=== PATIENT | male | born 1970 | race Caucasian/White ===

== ENCOUNTER 2020-10-05 01:30 | Emergency (ER) | payer OTHER ==
[~2020-10-05] VITALS: Ht 172.7 cm; Wt 72.6 kg
--- NOTE | 2020-10-05 01:42 | NUR ---
Pt BIB [facility] with c/o chest pressure that started 1 [address]. Pt states he was sitting at home watching TV when it started. A/O x4, no SOB or labored breathing. Denies any GI/ distress. Clear speech, complete sentences.
[2020-10-05] MEDS ORDERED: MORPHINE SULFATE 4 MG/1 ML DISP.SYRIN IV ONE (01:45)
--- NOTE | 2020-10-05 01:45 | NUR ---
Dr. Camacho at bedside, MSE in progress.
[2020-10-05] MEDS ORDERED: MORPHINE SULFATE 4 MG/1 ML DISP.SYRIN ONE (01:53)
[2020-10-05 02:02] LABS: HEMATOCRIT 38.9 % (36.7-47.1); MEAN CORPUSCULAR HEMOGLOBIN 29.4 uug (23.8-33.4); MEAN CORPUSCULAR VOLUME 87.6 fL (73.0-96.2); PLATELET COUNT (AUTO) 219 K/uL (152-348)
[2020-10-05 02:05] LABS: CREATININE 1.1 mg/dL (0.6-1.3); POTASSIUM 3.2 mmol/L (3.5-5.1)
[2020-10-05 02:17] LABS: BILIRUBIN,DIRECT 0.1 mg/dL (0.0-0.2); BILIRUBIN,TOTAL 0.3 mg/dL (0.2-1.0)
[2020-10-05 02:35] LABS: *AMPHETAMINE, URINE NEGATIVE (NEGATIVE); *CANNABINOID, URINE POSITIVE (NEGATIVE); *COCCAINE, URINE POSITIVE (NEGATIVE); *OPIATE, URINE NEGATIVE (NEGATIVE); *PHENCYCLIDINE SCREEN,URINE NEGATIVE (NEGATIVE)
--- NOTE | 2020-10-05 03:58 | NUR ---
Called [facility], Dalia York paged.
[2020-10-05] MEDS ORDERED: diphenhydrAMINE 50 MG CAPSULE PO ONE (04:15)
[2020-10-05] MEDS ORDERED: diphenhydrAMINE 50 MG CAPSULE ONE (04:25)
--- NOTE | 2020-10-05 04:58 | NUR ---
Patient is resting comfortably in bed with eyes closed. Vitals stable.
[2020-10-05] MEDS ORDERED: MORPHINE SULFATE 2 MG/1 ML DISP.SYRIN IV PRN (05:30)
[2020-10-05] MEDS ORDERED: Z GUARD REMEDY PASTE 57 GM TUBE TOP PRN (05:30)
[2020-10-05] MEDS ORDERED: ACETAMINOPHEN 325 MG TABLET PO PRN (05:30)
[2020-10-05] MEDS ORDERED: ONDANSETRON 4 MG/2 ML VIAL IV PRN (05:30)
[2020-10-05] MEDS ORDERED: MAGNESIUM HYDROXIDE 30 ML LIQUID UDC PO PRN (05:30)
--- NOTE | 2020-10-05 07:00 | NUR ---
recieved pt in bed, monitor on, pt awake, pt denies chest pain/pressure at this time.
--- NOTE | 2020-10-05 08:00 | NUR ---
pt had break fast with good apetite.
[2020-10-05] MEDS ORDERED: ASPIRIN 81 MG TAB.CHEW PO SCH (09:00)
[2020-10-05] MEDS ORDERED: ENOXAPARIN SODIUM 40 MG/0.4 ML DISP.SYRIN SQ SCH (09:00)
[2020-10-05] MEDS ORDERED: ENOXAPARIN SODIUM 40 MG/0.4 ML DISP.SYRIN SQ ONE (09:17)
[2020-10-05] MEDS ORDERED: ASPIRIN 81 MG TAB.CHEW ONE (09:17)
[2020-10-05] MEDS ORDERED: ESTA2TAB PO (11:23)
[2020-10-05] MEDS ORDERED: SERT100T PO (11:23)
[2020-10-05] MEDS ORDERED: CLOP75TA15 PO (11:23)
[2020-10-05] MEDS ORDERED: ALPR1TAB7 PO (11:23)
[2020-10-05] MEDS ORDERED: ATOR80TA PO (11:23)
--- NOTE | 2020-10-05 11:26 | NUR ---
pt ambualtes in the room with steady gait.
[2020-10-05] MEDS ORDERED: ASPI81TA31 PO (11:49)
[2020-10-05] MEDS ORDERED: ZOLP10TA2 PO (11:49)
--- NOTE | 2020-10-05 12:41 | NUR ---
lunch tray provided.
--- NOTE | 2020-10-05 14:39 | NUR ---
Dr. King at bedside.
[2020-10-05] MEDS ORDERED: ALPRAZOLAM 0.25 MG TABLET PO ONE (15:00)
[2020-10-05] MEDS ORDERED: POTASSIUM CHLORIDE 20 MEQ TAB.PRT.SR PO ONE (15:15)
[2020-10-05] MEDS ORDERED: POTASSIUM CHLORIDE 20 MEQ TAB.PRT.SR ONE ×2 (15:16→15:23)
[2020-10-05] MEDS ORDERED: ALPRAZOLAM 0.5 MG TABLET ONE (15:16)
--- NOTE | 2020-10-05 15:22 | NUR ---
Patient discharged to home ,per Dr. thomas order, in stable condition. Written and verbal after care instructions given. Patient verbalizes understanding of instructions. Stressed follow up with PMD. a copy of all the images provided for pt to follow up. pt says feels better, deneis any cp, sob or any other distress at this time. pt calling the family to come and poultry picker the pt.
[2020-10-05 15:27] LABS: THYROID STIMULATING HORMONE 3.191 mIU/mL (0.358-3.740)
[2020-10-05 15:29] LABS: MAGNESIUM 2.5 mg/dL (1.8-2.4)
[2020-10-05] MEDS ORDERED: ATORVASTATIN 20 MG TABLET PO SCH (21:00)
== END 2020-10-05 15:44 | disposition home or self-care (01) ==
LOC: ER 01:49
DX: R07.9 Chest pain, unspecified (principal); I25.10 Atherosclerotic heart disease of native coronary artery without angina pectoris; Z95.5 Presence of coronary angioplasty implant and graft; I10 Essential (primary) hypertension; E87.6 Hypokalemia; F17.210 Nicotine dependence, cigarettes, uncomplicated; E78.5 Hyperlipidemia, unspecified; F41.9 Anxiety disorder, unspecified; J98.11 Atelectasis; Z20.822 Contact with and (suspected) exposure to COVID-19
CPT/HCPCS: 36415; 71045; 80048; 80076; 80307; 83735; 83880; 84443; 84484 ×3; 85025; 87426; 93005; 96372; 99285; J1650; Q0163; 70030-TC; A4663; J2270

== ENCOUNTER 2022-11-07 11:27 | Emergency (ER) | payer MEDICAID, OTHER ==
[~2022-11-07] VITALS: Ht 167.6 cm; Wt 68.0 kg
[~2022-11-07 11:27] MED LIST: ALPR1TAB7 PO; ASPI81TA31 PO; ATOR80TA PO; CLOP75TA15 PO; ESTA2TAB PO; SERT100T PO; ZOLP10TA2 PO
[2022-11-07 13:04] LABS: BASOPHILS # (AUTO) 0.2 K/UL (0.0-0.2); BASOPHILS % (AUTO) 1.3 % (0.0-2.0); DIFFERENTIAL COMMENT 0; EOSINOPHILS # (AUTO) 0.2 K/uL (0.0-0.7); EOSINOPHILS % (AUTO) 1.4 % (0.0-7.0); HEMATOCRIT 43.5 % (36.7-47.1); HEMOGLOBIN 14.3 g/dL (12.5-16.3); LYMPHOCYTES # (AUTO) 2.3 K/uL (0.8-4.8); LYMPHOCYTES % (AUTO) 17.8 % (20.5-51.5); MEAN CORPUSCULAR HEMOGLOBIN 28.1 uug (23.8-33.4); MEAN CORPUSCULAR HGB CONC 33 g/dL (32.5-36.3); MEAN CORPUSCULAR VOLUME 85.7 fL (73.0-96.2); MONOCYTES # (AUTO) 0.6 K/uL (0.1-1.30); MONOCYTES % (AUTO) 4.8 % (0.0-11.0); NEUTROPHILS # (AUTO) 9.5 K/uL (1.8-8.9); NEUTROPHILS % (AUTO) 74.7 % (38.5-71.5); PLATELET COUNT (AUTO) 225 K/uL (152-348); RED BLOOD CELL COUNT(AUTO) 5.08 MIL/uL (4.06-5.63); WHITE BLOOD COUNT (AUTO) 12.8 K/uL (3.6-10.2)
[2022-11-07 13:11] LABS: CALCIUM 9.4 mg/dL (8.5-10.1); CARBON DIOXIDE 28 mmol/L (21-32); CHLORIDE 102 mmol/L (98-107); CREATININE 1.2 mg/dL (0.6-1.3); GLUCOSE 106 mg/dL (74-106); POTASSIUM 4.2 mmol/L (3.5-5.1); SODIUM SERUM 140 mmol/L (136-145); UREA NITROGEN, BLOOD 15 mg/dL (7-18)
[2022-11-07 13:25] LABS: ALANINE AMINOTRANSFERASE 21 U/L (16-63); ALBUMIN 3.8 g/dL (3.4-5.0); ALKALINE PHOSPHATASE 123 U/L (50-136); ASPARTATE AMINOTRANSFERASE 9 U/L (15-37); BILIRUBIN,DIRECT 0.1 mg/dL (0.0-0.2); BILIRUBIN,TOTAL 0.4 mg/dL (0.2-1.0); NT-PRO BNP 15 pg/mL (0-125); TOTAL PROTEIN, SERUM 7.9 g/dL (6.4-8.2)
[2022-11-07] MEDS ORDERED: SUCR1ORA4 PO (15:24)
[2022-11-07] MEDS ORDERED: FAMO40TA7 PO (15:24)
[2022-11-07 15:35] VITALS: BP 120/77; TEMP 98.4; O2SAT 96
== END 2022-11-07 15:35 | disposition home or self-care (01) ==
LOC: ER 11:27
DX: R11.0 Nausea (principal); I25.10 Atherosclerotic heart disease of native coronary artery without angina pectoris; I10 Essential (primary) hypertension; Z79.01 Long term (current) use of anticoagulants; Z79.82 Long term (current) use of aspirin; Z79.899 Other long term (current) drug therapy
CPT/HCPCS: 36415; 71045; 83690; 84484; 85025; 85730; 93005; A4663

== ENCOUNTER 2024-06-04 15:20 | Emergency (ER) | payer MEDICAID, OTHER ==
[~2024-06-04] VITALS: Ht 170.2 cm; Wt 81.6 kg
[~2024-06-04 15:20] MED LIST changes: +FAMO40TA7 PO; +SUCR1ORA4 PO; -ZOLP10TA2 PO
[2024-06-04 16:48] LABS: ALANINE AMINOTRANSFERASE 23 U/L (16-63); ALBUMIN 4.1 g/dL (3.4-5.0); ALKALINE PHOSPHATASE 127 U/L (50-136); ASPARTATE AMINOTRANSFERASE 19 U/L (15-37); BILIRUBIN,DIRECT 0.1 mg/dL (0.0-0.2); BILIRUBIN,TOTAL 0.5 mg/dL (0.2-1.0); CARBON DIOXIDE 27 mmol/L (21-32); CHLORIDE 100 mmol/L (98-107); GLUCOSE 113 mg/dL (74-106); SODIUM SERUM 140 mmol/L (136-145); TOTAL PROTEIN, SERUM 7.7 g/dL (6.4-8.2); UREA NITROGEN, BLOOD 25 mg/dL (7-18)
[2024-06-04 16:49] LABS: ACETAMINOPHEN < 2.0 ug/mL (10-30); ETHANOL < 3 MG/DL (0-10)
[2024-06-04 16:50] LABS: BASOPHILS # (AUTO) 0.1 K/UL (0.0-0.2); BASOPHILS % (AUTO) 0.6 % (0.0-2.0); DIFFERENTIAL COMMENT 0; EOSINOPHILS # (AUTO) 0.1 K/uL (0.0-0.7); LYMPHOCYTES # (AUTO) 2.7 K/uL (0.8-4.8)
[2024-06-04 16:52] LABS: EOSINOPHILS % (AUTO) 0.9 % (0.0-7.0); HEMATOCRIT 44.2 % (36.7-47.1); LYMPHOCYTES % (AUTO) 19.1 % (20.5-51.5); MEAN CORPUSCULAR HEMOGLOBIN 28.8 uug (23.8-33.4); MEAN CORPUSCULAR HGB CONC 34 g/dL (32.5-36.3); MONOCYTES # (AUTO) 1.1 K/uL (0.1-1.30); MONOCYTES % (AUTO) 7.5 % (0.0-11.0); NEUTROPHILS # (AUTO) 10.3 K/uL (1.8-8.9); NEUTROPHILS % (AUTO) 71.9 % (38.5-71.5); PLATELET COUNT (AUTO) 335 K/uL (152-348); RED CELL DISTRIBUTION WIDTH 15.4 % (12.1-16.2); WHITE BLOOD COUNT (AUTO) 14.3 K/uL (3.6-10.2)
[2024-06-04 16:56] LABS: THYROID STIMULATING HORMONE 2.725 mIU/mL (0.358-3.740)
[2024-06-04 17:12] LABS: *BILIRUBIN,URIN NEGATIVE (NEGATIVE); *BLOOD, URINE 1+ (NEGATIVE); *CLARITY,URINE CLEAR (CLEAR); *COLOR,URINE YELLOW (YELLOW); *KETONES,URINE NEGATIVE (NEGATIVE); *PROTEIN,URINE 1+ (NEGATIVE); *UROBILINOGEN,URINE 0.2 E.U./dl (NORMAL); LEUKOCYTE ESTERASE ,URINE NEGATIVE (NEGATIVE); NITRITE, URINE NEGATIVE (NEGATIVE); UGLUCOSE NEGATIVE (NEGATIVE)
[2024-06-04 17:13] LABS: MAGNESIUM 2.3 mg/dL (1.8-2.4)
[2024-06-04 17:23] LABS: *AMPHETAMINE, URINE NEGATIVE (NEGATIVE); *BARBITURATE, URINE NEGATIVE (NEGATIVE); *BENZODIAZEPINE, URINE POSITIVE (NEGATIVE); *CANNABINOID, URINE POSITIVE (NEGATIVE); *COCCAINE, URINE NEGATIVE (NEGATIVE); *OPIATE, URINE NEGATIVE (NEGATIVE); *PHENCYCLIDINE SCREEN,URINE NEGATIVE (NEGATIVE); FENTANYL, URINE NEGATIVE (NEGATIVE)
[2024-06-04 17:25] LABS: BACTERIA,URINE FEW /HPF (NONE SEEN); SQUAMOUS EPITHELIAL CELL,UR FEW /HPF (NONE SEEN); WBC,URINE 0-3 /HPF (0-3)
[2024-06-04 18:45] VITALS: O2SAT 99
[2024-06-04] MEDS: CYANOCOBALAMIN 1000 MCG/ML VIAL IM ONE (19:27)
== END 2024-06-04 19:00 | disposition left against medical advice (07) ==
LOC: ER 15:20
DX: R45.851 Suicidal ideations (principal); R00.0 Tachycardia, unspecified; R07.89 Other chest pain; E53.8 Deficiency of other specified B group vitamins; F17.200 Nicotine dependence, unspecified, uncomplicated; F32.A Depression, unspecified; F41.9 Anxiety disorder, unspecified; G47.00 Insomnia, unspecified; Z79.02 Long term (current) use of antithrombotics/antiplatelets; Z79.82 Long term (current) use of aspirin; Z79.899 Other long term (current) drug therapy; Z95.5 Presence of coronary angioplasty implant and graft; Z20.822 Contact with and (suspected) exposure to COVID-19
CPT/HCPCS: 36415; 83735; 84443; 85025; A4606; A4663; G0480